=== PATIENT | female | born 1975 | race American Indian/Alaskan Native ===

== ENCOUNTER 2016-08-17 09:47 | Outpatient (CLI) | payer BC ==
--- NOTE | 2016-08-17 11:56 | Mammography Report ---
Bilateral baseline screening mammogram with CAD. Findings: There are scattered fibroglandular densities. An ovoid shaped parenchymal asymmetry is seen in the upper-outer quadrant of the left breast. This measures approximately 1.9 cm. No architectural distortion or suspicious calcifications are seen. Impression: Left parenchymal asymmetry. BI-RADS code: 0. Recommendation: Left breast targeted ultrasound.
== END 2016-08-17 09:48 | disposition home or self-care (01) ==
LOC: MAMMO 09:47
PROVIDERS: ATTEND Advanced Practice Midwife
DX: Z12.31 Encounter for screening mammogram for malignant neoplasm of breast (principal)
CPT/HCPCS: 77067; G0202

== ENCOUNTER 2017-03-24 14:48 | Outpatient (CLI) | payer BC, OTHER | END 2017-03-24 14:49 | disposition home or self-care (01) | LOC: LABHHL 14:48 | PROVIDERS: ATTEND Surgery | DX: D24.2 Benign neoplasm of left breast (principal) | CPT/HCPCS: 88305 ==